=== PATIENT | female | born 1960 | race Caucasian/White ===

== ENCOUNTER → 2020-12-27 08:02 | Outpatient (CLI) | payer OTHER, SELFPAY ==
[2020-12-27 08:21] LABS: Blood Urea Nitrogen 19 mg/dl (7-17); Estimated Glomerular Filt Rate 73 ml/min (>60); GFR (African American) 88 ML/MIN (>60)
--- NOTE | 2020-12-27 08:26 | MR_ITS ---
PROCEDURE: MR HEAD/BRAIN WO/W CON CLINICAL INDICATION: seizure CV DISEASE, ?MS COMPARISON: No exams were available for comparison TECHNIQUE: Routine multiplanar multi echo sequences are performed without gadolinium enhancement. FINDINGS: No midline shift, mass effect, intracranial hemorrhage, or hydrocephalus. No evidence of acute infarction. Unremarkable white matter signal intensity. The hippocampal gyri and temporal horns are unremarkable. There is a partial empty sella as a normal variant. Optic chiasm, corpus callosum, and craniocervical junction have an unremarkable appearance. There is degenerative disc disease with bulging disc at C3-C4 C4-C5 and C5-C6. No evidence to suggest multiple sclerosis. There is increased heterogeneous signal intensity within the petrous apex on the left on T1 and the T2 weighted images with slight increased signal in this area on the FLAIR images. This may represent asymmetric fatty bone marrow within the petrous apex and can be confirmed with CT. No sinus air-fluid level within the paranasal sinuses. IMPRESSION: 1. No evidence of multiple sclerosis. 2. No acute intracranial findings. 3. Increased T1 and T2 signal within the petrous apex on the left which may represent asymmetric fatty marrow within the petrous apex. Consider high-resolution CT of the temporal bones without and with contrast for confirmation Dictated by: Andrew Muhammad MD 12/29/2020 07:56 Andrew Muhammad MD in [place] 12/29/2020 07:56
== END ==
PROVIDERS: PCP Family Medicine; Visit Provider Specialist
DX: G40.909 Epilepsy, unspecified, not intractable, without status epilepticus (principal); R93.0 Abnormal findings on diagnostic imaging of skull and head, not elsewhere classified
CPT/HCPCS: 70553; 82565; 84520; A9576

== ENCOUNTER → 2021-01-10 12:12 | Outpatient (CLI) | payer OTHER, SELFPAY ==
[2021-01-10 13:45] LABS: Chloride 98 mmol/L (98-107); Potassium 4.8 mmoL/L (3.5-5.1); Sodium 130 mmol/L (136-145)
[2021-01-10 13:48] LABS: Anion Gap 9.8 mEq/L (5-15); Blood Urea Nitrogen 18 mg/dl (7-17); Calcium 9.9 mg/dl (8.4-10.2); Carbon Dioxide 27 mmol/L (22.0-30.0); Estimated Glomerular Filt Rate 73 ml/min (>60); GFR (African American) 88 ML/MIN (>60); Glucose 77 mg/dl (74-100)
== END ==
PROVIDERS: Visit Provider Specialist
DX: R93.0 Abnormal findings on diagnostic imaging of skull and head, not elsewhere classified (principal)
CPT/HCPCS: 36415; 80048

== ENCOUNTER → 2021-01-10 12:30 | Outpatient (CLI) | payer OTHER, SELFPAY ==
--- NOTE | 2021-01-10 12:30 | CT_ITS ---
PROCEDURE: CT HEAD/BRAIN WO/W CON CLINICAL INDICATION: special attention to temporal bone, abnormal MRI Abnormal appearing petrous apex on the left. COMPARISON: MR MR HEAD/BRAIN WO/W CON from 12/27/2020 TECHNIQUE: IV Contrast: 100ML Isovue 370 Axial images obtained. All CT scans at the facility use one or more dose reduction, viz: automated exposure control, ma/kV adjustment per patient size (including targeted exams where dose is matched to indication, i.e. head), or iterative reconstruction technique. FINDINGS: High-resolution images are obtained of the temporal bone without and with contrast enhancement. There is extensive pneumatization of the petrous bone on both sides. Along the medial aspect of the left petrous bone instead of air density there is some opacification of the petrous bone air cells accounting for the abnormal signal on the MRI. No bony destructive lesion is evident. The a acoustic foramen is symmetric with no abnormal enhancement. The petrous bone and mastoid air cells are otherwise unremarkable. No midline shift or mass effect. No other significant anomalies are evident. IMPRESSION: Extensive pneumatization of the petrous bone on both sides. Along the medial aspect of the left petrous bone there is opacification of the petrous air cells which may be due to fluid and/or fat and has a benign appearance. Dictated by: Andrew Muhammad MD 01/10/2021 23:48 Andrew Muhammad MD in [facility] 01/10/2021 23:48
== END ==
PROVIDERS: PCP Family Medicine; Visit Provider Specialist
DX: R93.0 Abnormal findings on diagnostic imaging of skull and head, not elsewhere classified (principal)
CPT/HCPCS: 70470; Q9967

== ENCOUNTER → 2022-08-21 09:05 | Outpatient (CLI) | payer OTHER, SELFPAY | PROVIDERS: PCP Family Medicine; Visit Provider Nurse Practitioner | DX: R00.2 Palpitations (principal) | CPT/HCPCS: 93225; 93226 ==

== ENCOUNTER → 2023-05-28 08:40 | Outpatient (CLI) | payer OTHER, SELFPAY | PROVIDERS: Visit Provider Family Medicine | DX: F41.9 Anxiety disorder, unspecified (principal) | CPT/HCPCS: 87086 ==

== ENCOUNTER 2024-01-14 10:42 | Outpatient (CLI) | payer MEDICARE, SELFPAY | END 2024-01-14 23:59 | PROVIDERS: PCP Nurse Practitioner Family; Visit Provider Nurse Practitioner Family | DX: R55 Syncope and collapse (principal) | CPT/HCPCS: 93225 ==

== ENCOUNTER 2024-02-19 15:01 | Emergency (ER) | payer MEDICARE, SELFPAY ==
[2024-02-19 15:02] VITALS: BP 135/61; PULSE 80; RESP 17; TEMP 36.8; O2SAT 96
[2024-02-19 15:03] VITALS: BMI 33.3
--- NOTE | 2024-02-19 15:05 | PC.NURSE ---
Dr. Tovar at bedside
--- NOTE | 2024-02-19 15:05 | ECG_ITS ---
APPROVED REPORT Exam: Resting ECG HR:77 bpm ECG Measurements Heart Rate 77 AXES CA 149 P 50 QRSd 110 QRS 47 QT 385 T 66 QTc 417 Conclusion SINUS RHYTHM INCOMPLETE RIGHT BUNDLE BRANCH BLOCK [90+ ms QRS DURATION, TERMINAL R IN V1/V2, 40+ ms S IN I/aVL/V4/V5/V6] MINIMAL ST DEPRESSION [0.025+ mV ST DEPRESSION] BORDERLINE ECG Electronically signed by : MAXX PRATHER, 03/02/2024 15:29:49
--- NOTE | 2024-02-19 15:12 | PC.NURSE ---
@ [phone] notified radiology that pt will be stroke protocols ct's. Preparing pt for ct.
--- NOTE | 2024-02-19 15:14 | PC.NURSE ---
@ [phone] notified radiology that pt will be stroke protocols ct's. Preparing pt for ct.
--- NOTE | 2024-02-19 15:15 | CT_ITS ---
PROCEDURE INFORMATION: Exam: CTA Neck With Contrast Exam date and time: 02/19/2024 3:22 PM Age: 63 years old Clinical indication: Weakness; Additional info: Transient R weakness and paraesthesia TECHNIQUE: Imaging protocol: Computed tomographic angiography of the neck with contrast. Exam focused on the cervical segments of the vasculature. 3D rendering (Not supervised by radiologist): MIP and/or 3D reconstructed images were created by the technologist. Radiation optimization: All CT scans at this facility use at least one of these dose optimization techniques: automated exposure control; mA and/or kV adjustment per patient size (includes targeted exams where dose is matched to clinical indication); or iterative reconstruction. Contrast material: ISOVUE; Contrast volume: 100 ml; Contrast route: INTRAVENOUS (IV); COMPARISON: CT ANGIO HEAD 02/19/2024 3:22 PM FINDINGS: Right common carotid artery: No stenosis. No dissection or occlusion. Right internal carotid artery: Less than 50% stenosis proximal right ICA. Atherosclerotic calcification. Right external carotid artery: No occlusion or stenosis of the origin. Left common carotid artery: No stenosis. No dissection or occlusion. Left internal carotid artery: Less than 50% stenosis proximal left ICA. Left external carotid artery: No occlusion or stenosis of the origin. Right vertebral artery: No stenosis. No dissection or occlusion. Left vertebral artery: No stenosis. No dissection or occlusion. Soft tissues: Normal. No significant soft tissue swelling. Bones/joints: No acute fracture. IMPRESSION: 1. Less than 50% stenosis proximal right ICA. 2. Less than 50% stenosis proximal left ICA. REFERENCES: NASCET CRITERIA. The degree of stenosis in the cervical segment of the internal carotid artery is based on NASCET criteria. Normal is no stenosis. Mild is less than 50% stenosis. Moderate is 50-69% stenosis. Severe is 70% to 99% stenosis. Total occlusion is no detectable patent lumen.
--- NOTE | 2024-02-19 15:15 | CT_ITS ---
PROCEDURE INFORMATION: Exam: CTA Head With Contrast, Arteriography Exam date and time: 02/19/2024 3:22 PM Age: 63 years old Clinical indication: Weakness; Additional info: Transient R weakness and paraesthesia TECHNIQUE: Imaging protocol: Computed tomographic angiography of the head with contrast. Exam focused on the arteries. 3D rendering (Not supervised by radiologist): MIP and/or 3D reconstructed images were created by the technologist. Radiation optimization: All CT scans at this facility use at least one of these dose optimization techniques: automated exposure control; mA and/or kV adjustment per patient size (includes targeted exams where dose is matched to clinical indication); or iterative reconstruction. Contrast material: ISOVUE; Contrast volume: 100 ml; Contrast route: INTRAVENOUS (IV); COMPARISON: CT HEAD/BRAIN WO CON 02/19/2024 3:20 PM FINDINGS: ANTERIOR CIRCULATION: Right internal carotid artery: Intracranial segment is patent with no significant stenosis. No aneurysm. Right middle cerebral artery: No occlusion or significant stenosis. No aneurysm. Right anterior cerebral artery: No occlusion or significant stenosis. No aneurysm. Left internal carotid artery: Intracranial segment is patent with no significant stenosis. No aneurysm. Left middle cerebral artery: No occlusion or significant stenosis. No aneurysm. Left anterior cerebral artery: No occlusion or significant stenosis. No aneurysm. POSTERIOR CIRCULATION: Right vertebral artery: No occlusion or significant stenosis. No aneurysm. Left vertebral artery: No occlusion or significant stenosis. No aneurysm. Basilar artery: No occlusion or significant stenosis. No aneurysm. Right posterior cerebral artery: No occlusion or significant stenosis. No aneurysm. Left posterior cerebral artery: No occlusion or significant stenosis. No aneurysm. Brain: No definite mass, mass effect, or midline shift. Cerebral ventricles: No ventriculomegaly. Bones/joints: Unremarkable. No acute fracture. Soft tissues: Unremarkable. IMPRESSION: No large vessel stenosis or occlusion.
--- NOTE | 2024-02-19 15:15 | CT_ITS ---
PROCEDURE INFORMATION: Exam: CT Head Without Contrast Exam date and time: 02/19/2024 3:20 PM Age: 63 years old Clinical indication: Other: Transient R weakness and paraesthesia; Additional info: Stroke alert. Transient R weakness and paraesthesia TECHNIQUE: Imaging protocol: Computed tomography of the head without contrast. Radiation optimization: All CT scans at this facility use at least one of these dose optimization techniques: automated exposure control; mA and/or kV adjustment per patient size (includes targeted exams where dose is matched to clinical indication); or iterative reconstruction. COMPARISON: CT HEAD/BRAIN WO/W CON 01/10/2021 2:05 PM FINDINGS: Brain: Normal. No hemorrhage. Unremarkable white matter. No mass effect. Cerebral ventricles: No ventriculomegaly. Paranasal sinuses: Visualized sinuses are unremarkable. No fluid levels. Mastoid air cells: Visualized mastoid air cells are well aerated. Bones/joints: Unremarkable. No acute fracture. Soft tissues: Unremarkable. IMPRESSION: No acute intracranial abnormality.
--- NOTE | 2024-02-19 15:17 | PC.NURSE ---
pt to ct with radiology
--- NOTE | 2024-02-19 15:18 | ED_ITS ---
Discharge Plan Disposition Patient Disposition: Xfer Short-Term Hosp Chief Complaint: Weakness Prescriptions Prescriptions: No Action celecoxib 200 mg capsule 200 mg PO DAILY lamotrigine 100 mg tablet 25 mg PO DAILY Rx Instructions: Takes 4 in the morning, 4 at bedtime. simvastatin 20 mg tablet 40 mg PO HS fluoxetine 40 mg capsule See Rx Instructions .ROUTE .COMPLEX Qty: 30 2RF Dose Instruction: TAKE 1 CAPSULE BY MOUTH DAILY FOR ANXIETY Rx Instructions: TAKE 1 CAPSULE BY MOUTH DAILY FOR ANXIETY benazepril 40 mg tablet See Rx Instructions .ROUTE .COMPLEX Qty: 30 3RF Dose Instruction: TAKE 1 TABLET BY MOUTH DAILY Rx Instructions: TAKE 1 TABLET BY MOUTH DAILY donepezil 5 mg tablet See Rx Instructions .ROUTE .COMPLEX Qty: 30 2RF Dose Instruction: Take 1 Tablet by mouth once daily. Rx Instructions: Take 1 Tablet by mouth once daily. hydrochlorothiazide 12.5 mg tablet See Rx Instructions .ROUTE .COMPLEX Qty: 30 1RF Dose Instruction: Take 1 Tablet by mouth once daily. Rx Instructions: Take 1 Tablet by mouth once daily. Referrals Follow up/Referrals: Steven Clarke MD [Primary Care Provider] - See instructions Clinical Impressions Clinical Impression: TIA (transient ischemic attack) Discharge ED Provider: Manuel Tovar General Adult HPI General Chief complaint: Weakness Stated complaint: Poss CVA 45 min ago (1415), no symp now Time Seen by Provider: 02/19/24 15:01 History of Present Illness HPI narrative: Patient is a 63-year-old female with past medical history of seizure disorder diagnosed in 2019 which was described as like she is put on pause and is aware of her surroundings but unable to respond. At that time she was put on Keppra 500 mg twice daily with significant reduction in frequency. Per Dr. Noland's note she was seen in 2020 for frequency was noted to be approximately once a week. Patient has past medical history of hypertension, MRI and 2019 showed mild hyper intense T2 signal within the left hippocampus with mild cortical expansion, no enhancement. Patient also has episodic paresthesias from her left shoulder down to her elbow that does not extend past the elbow without associated weakness or lower extremity symptoms. Today approximately 45 minutes prior to arrival patient had an episode of right-sided paresthesias involving the arms and legs in a global distribution with associated weakness of the right arm or right leg. No facial droop reported. Patient was able to speak during this. Symptoms lasted approximately 5 minutes and they present here for continued evaluation. Related Data Home Medications Medication Instructions Recorded Confirmed simvastatin 20 mg tablet 40 mg PO HS 03/19/23 02/19/24 celecoxib 200 mg capsule 200 mg PO DAILY 05/28/23 02/19/24 lamotrigine 100 mg tablet 25 mg PO DAILY 05/28/23 02/19/24 Previous Rx's Medication Instructions Recorded fluoxetine 40 mg capsule See Rx Instructions .Route 09/03/23 .COMPLEX #30 caps benazepril 40 mg tablet See Rx Instructions .Route 11/23/23 .COMPLEX #30 tabs donepezil 5 mg tablet See Rx Instructions .Route 01/04/24 .COMPLEX #30 tabs hydrochlorothiazide 12.5 mg tablet See Rx Instructions .Route 01/24/24 .COMPLEX #30 tabs Allergies Allergy/AdvReac Type Severity Reaction Status Date / Time No Known Allergies Allergy Verified 01/14/24 08:50 [facility] Disclaimer: The information contained in this section may have been updated after the patient was seen, as this information can be updated by other users. Medical History (Updated 02/19/24 @ 16:20 by Manuel Tovar MD) Transient neurological symptoms Palpitations Hypertension Memory loss Confusion Social History Smoking Status: Current every day smoker tobacco type: cigarettes packs per day: 1 alcohol intake: never substance use type: denies use current occupational status: employed Travel in the last 8 weeks: None household members: none housing: house ROS Obtained: Yes Systems reviewed as appropriate & no additional complaints except as documented Physical Exam General General appearance: alert and in no apparent distress Head Head exam: atraumatic and normocephalic Eye Eye exam: Present PERRL and EOMI ENT ENT exam: Present mucous membranes moist Neck Neck exam: Present normal inspection Chest Chest inspection: Present normal inspection and symmetric chest wall rise Respiratory Respiratory exam: Present normal lung sounds bilaterally; Absent respiratory distress Cardiovascular Cardiovascular exam: Present regular rate and normal rhythm Abdominal Exam Abdominal exam: Present soft; Absent tenderness Extremities Exam Extremities exam: Present normal inspection Neurological Exam Neurological exam: Present alert, oriented X3 and CN II-XII intact; Absent motor sensory deficit Psychiatric Psychiatric exam: Present normal affect Skin Skin exam: Present warm and dry Medical Decision Making [place] Inquiry Pt receiving controlled substance: No Vital Signs: 02/19/24 15:02 02/19/24 15:31 02/19/24 16:05 Temperature 98.3 F Temperature Source Oral Pulse Rate 80 80 Pulse Rate [Right] 80 Respiratory Rate 17 18 18 Blood Pressure 131/58 L 139/53 L Blood Pressure [Right Arm] 135/61 Blood Pressure Mean 110 105 Blood Pressure Mean [Right Arm] 85 Blood Pressure Source [Right Arm] Automatic Cuff Blood Pressure Position [Right Arm] Sitting 02 Sat by Pulse Oximetry 96 95 97 Oxygen Delivery Method Room Air Lab Data Lab Results 02/19/24 15:10: WBC 9.8, RBC 4.55, Hgb 13.5, Hct 42.7, MCV 93.8, MCH 29.6, MCHC 31.6 L, RDW 14.4, Plt Count 299, MPV 7.5, Neut % (Auto) 63.5, Lymph % (Auto) 24.4, [place] % (Auto) 5.5, Eos % (Auto) 5.6, Baso % (Auto) 1.0, Neut # (Auto) 6.2, Lymph # (Auto) 2.4, [place] # (Auto) 0.5, Eos # (Auto) 0.6 H, Baso # (Auto) 0.1, Sodium 136, Potassium 3.5, Chloride 104, Carbon Dioxide 30, Anion Gap 5.5, BUN 15, Creatinine 0.70, Estimated Creat Clear 80, Estimated GFR 84, Est GFR ( Amer) 102, Glucose 132 H, Calcium 8.9, Magnesium 1.9, Total Bilirubin 0.2, AST 24, ALT 21, Alkaline Phosphatase 113, Troponin I < 0.01, Total Protein 6.9, Albumin 3.9, Globulin 3.0, Albumin/Globulin Ratio 1.3 02/19/24 15:10 02/19/24 15:10 Orders (Tests/Meds): ED MEDICATIONS Discontinued Medications Generic Name Dose Route Start Last Admin Trade Name Freq PRN Reason Stop Dose Admin Iopamidol 100 ml 02/19/24 15:22 02/19/24 15:23 Iopamidol-370 (76%);100ml Bottle IV 02/19/24 15:23 100 ml ONCE ONE Administration Sodium Chloride 50 ml 02/19/24 15:22 02/19/24 15:23 0.9 % Sodium Chloride 50 Ml Vial IV 02/19/24 15:23 50 ml ONCE ONE Administration Sodium Chloride 10 ml 02/19/24 15:22 02/19/24 15:23 Sodium Chloride 0.9% 10ml Syr (Rad Only) IV 02/19/24 15:23 10 ml ONCE ONE Administration ORDERS Category Date Time Status CT angio head Stat Cat Scan 02/19/24 15:[address] angio neck Stat Cat Scan 02/19/24 15:[address] head/brain wo con Stat Cat Scan 02/19/24 15:15 Completed CMP [Comprehensive Metabolic Panel] Stat Lab 02/19/24 15:10 Completed Complete Blood Count Auto Diff Stat Lab 02/19/24 15:10 Completed MG [Magnesium] Stat Lab 02/19/24 15:10 Completed Trop I [Troponin I] Stat Lab 02/19/24 15:10 Completed Troponin I Q3H Lab 02/19/24 18:15 Ordered Troponin I Q3H Lab 02/19/24 21:15 Ordered Urinalysis and Microscopic Stat Lab 02/19/24 16:01 Received ECG Data Tracing #1: Independently interpreted by me, rate of 77, rhythm is regular, axis is normal, no ST elevation in anatomical contiguous leads, QTc 417. Medical Decision Narrative: In summary patient is a 63-year-old female past medical history described above who presents emergency department for evaluation of transient paresthesias and weakness of the right side of her body. Patient is hemodynamically stable nontoxic-appearing upon arrival, afebrile with a nonfocal neurologic exam. Differential diagnosis includes TIA, underlying worsening hyperintense pathology that is known from previous MRI, among others. Patient has cardiovascular risk factors with hypertension and smoking. Last known normal approximately 2:30 PM. Patient undergo stroke protocol with noncontrasted CT scan of the head and CTA of the head and neck. Hematologic labs to be obtained. NIH upon my assessment is 0. Initial workup reviewed by me, hematologic labs are nonactionable, initial troponin below detectable limit. Noncontrasted CT scan of the head informally interpreted by me, no large intra-axial hemorrhage with midline shift. Formal read shows no acute intracranial abnormality, CT of the head and neck shows no large vessel stenosis or occlusion. Less than 50% stenosis of the bilateral ICAs. Case was discussed with [facility] stroke health care legal assistant. Patient is not a tPA candidate given NIH of 0. They graciously accepted patient for transfer under the care of Dr. Campuzano for inpatient management at this time. Critical Care Critical Care Time Critical Care Time: Yes Attestation: On 02/19/24, the high probability of a clinically significant, sudden or life threatening deterioration of the following system(s) required my full and direct attention, intervention and personal management. The time I documented below is in addition to time spent performing reported procedures but includes the following listed in this critical care notation. Total Time Total Critical Care Time: 35
[2024-02-19 15:21] LABS: Basophils # 0.1 K/mm3 (0-0.2); Eosinophils # 0.6 K/mm3 (0.0-0.4); Eosinophils % 5.6 % (0.1-12.0); Hematocrit 42.7 % (37.0-47.0); Hemoglobin 13.5 g/dL (12.2-16.2); Lymphocytes # 2.4 K/mm3 (0.7-4.5); Lymphocytes % 24.4 % (10-50); Mean Corpuscular HGB Conc 31.6 g/dL (31.8-35.4); Mean Corpuscular Hemoglobin 29.6 pg (27.0-31.2); Mean Corpuscular Volume 93.8 fl (81-99); Mean Platelet Volume 7.5 fl (7.4-10.4); Monocytes # 0.5 K/mm3 (0.1-1.0); Monocytes % 5.5 % (1.7-9.3); Neutrophils # 6.2 K/mm3 (1.8-7.8); Neutrophils % 63.5 % (37.0-80.0); Platelet Count 299 K/mm3 (142-424); Red Blood Count 4.55 M/mm3 (4.20-5.40); Red Cell Distribution Width 14.4 % (11.5-17.5); White Blood Count 9.8 K/mm3 (4.8-10.8)
[2024-02-19] MEDS: IOPAMIDOL-370 (76%);100ML BOTTLE 100 ML IV (15:23)
[2024-02-19] MEDS: 0.9 % SODIUM CHLORIDE 50 ML VIAL IV (15:23)
[2024-02-19] MEDS: SODIUM CHLORIDE 0.9% 10ML SYR (RAD ONLY) 10 ML IV (15:23)
[2024-02-19 15:25] LABS: Chloride 104 mmol/L (98-107); Potassium 3.5 mmoL/L (3.5-5.1); Sodium 136 mmol/L (136-145)
[2024-02-19 15:27] LABS: Alanine Aminotransferase 21 U/L (12-78); Alkaline Phosphatase 113 U/L (38-126); Aspartate Amino Transferase 24 U/L (14-36); Bilirubin,Total 0.2 mg/dl (0.2-1.3); Blood Urea Nitrogen 15 mg/dl (7-17); Creatinine Clearance Estimated 80 mL/min (50-200); Estimated Glomerular Filt Rate 84 ml/min (>60); GFR (African American) 102 ML/MIN (>60)
[2024-02-19 15:28] LABS: Albumin Level 3.9 g/dl (3.5-5.0); Albumin/Globulin Ratio 1.3 (1.1-1.8); Anion Gap 5.5 mEq/L (5-15); Calcium 8.9 mg/dl (8.4-10.2); Carbon Dioxide 30 mmol/L (22.0-30.0); Glucose 132 mg/dl (74-100); Magnesium 1.9 mg/dl (1.6-2.3); Total Protein,Serum 6.9 g/dl (6.3-8.2)
[2024-02-19 15:31] VITALS: BP 131/58; PULSE 80; RESP 18; O2SAT 95
[2024-02-19 15:44] LABS: Troponin I < 0.01 ng/ml (0.00-0.034)
--- NOTE | 2024-02-19 15:48 | PC.NURSE ---
Dr. Tovar at BS to update pt/visitors on POC
[2024-02-19 16:05] VITALS: BP 139/53; PULSE 80; RESP 18; O2SAT 97
[2024-02-19 16:05] LABS: Microscopic, Urine URINE MICROSCOPIC (MICROSCOPIC)
[2024-02-19 16:08] LABS: Appearance,Urine CLEAR (Clear); Bilirubin,Urine Negative (Negative); Blood, Urine Negative (Negative); Color,Urine YELLOW (Yellow); Glucose,Urine (UA) Negative (Negative); Ketones,Urine Negative (Negative); Leukocyte Esterase,Urine Negative (Negative); Nitrate,Urine Negative (Negative); PH,Urine 5.5 (5.0-8.5); Protein,Urine Negative (Negative); Specific Gravity, Urine <= 1.005 (1.005-1.030); Urobilinogen,Urine 0.2 EU/dl (0.2)
--- NOTE | 2024-02-19 16:20 | PC.NURSE ---
Dr. Tovar states he s/w [facility] Stroke Navigator and Dr. Campuzano accepted pt.
[2024-02-19 16:23] LABS: Bacteria,Urine 1+ /lpf; RBC,Urine Occasional #/hpf (0-3)
[2024-02-19 16:30] VITALS: BP 133/61; PULSE 68; RESP 16; O2SAT 97
--- NOTE | 2024-02-19 16:31 | PC.NURSE ---
faxed facesheet to [place] [phone]
--- NOTE | 2024-02-19 16:47 | PC.NURSE ---
Report called to Pat RAJAN at [facility]
--- NOTE | 2024-02-19 16:47 | PC.NURSE ---
RN calling report at this time
[2024-02-19 17:07] VITALS: BP 137/66; PULSE 72; RESP 16; TEMP 36.8; O2SAT 97
== END 2024-02-19 17:08 | disposition short-term general hospital (02) ==
PROVIDERS: Emergency Provider Emergency Medicine; PCP Family Medicine
DX: G45.9 Transient cerebral ischemic attack, unspecified (principal); F17.210 Nicotine dependence, cigarettes, uncomplicated; I10 Essential (primary) hypertension
CPT/HCPCS: 70450; 70496; 70498; 80053; 81001; 83735; 84484; 85025; 93005; 99285; Q9967

== ENCOUNTER 2024-10-06 15:00 | Outpatient (CLI) | payer MEDICARE, SELFPAY | END 2024-10-06 23:59 | disposition home or self-care (01) | LOC: LAB.DROPOF 10-07 09:45 | PROVIDERS: PCP Family Medicine; Visit Provider Nurse Practitioner Family | DX: N39.0 Urinary tract infection, site not specified (principal) | CPT/HCPCS: 87086; 87088; 87186 ==

== ENCOUNTER 2024-10-20 09:26 | Outpatient (CLI) | payer MEDICARE, SELFPAY ==
[2024-10-20 18:39] LABS: Basophils % 0.4 % (0.1-2.0); Eosinophils # 0.4 K/mm3 (0.0-0.4); Eosinophils % 4.3 % (0.1-12.0); Hematocrit 41.9 % (37.0-47.0); Hemoglobin 14.3 g/dL (12.2-16.2); Lymphocytes # 1.4 K/mm3 (0.7-4.5); Lymphocytes % 14.2 % (10-50); Mean Corpuscular HGB Conc 34.1 g/dL (31.8-35.4); Mean Corpuscular Hemoglobin 29.9 pg (27.0-31.2); Mean Corpuscular Volume 87.7 fl (81-99); Mean Platelet Volume 7.8 fl (7.4-10.4); Monocytes # 0.6 K/mm3 (0.1-1.0); Monocytes % 5.7 % (1.7-9.3); Neutrophils # 7.7 K/mm3 (1.8-7.8); Neutrophils % 75.4 % (37.0-80.0); Platelet Count 324 K/mm3 (142-424); Red Blood Count 4.78 M/mm3 (4.20-5.40); Red Cell Distribution Width 13.9 % (11.5-17.5); White Blood Count 10.2 K/mm3 (4.8-10.8)
[2024-10-20 18:59] LABS: Alanine Aminotransferase 15 U/L (12-78); Albumin Level 3.9 g/dl (3.5-5.0); Albumin/Globulin Ratio 1.6 (1.1-1.8); Alkaline Phosphatase 95 U/L (38-126); Aspartate Amino Transferase 20 U/L (14-36); Bilirubin,Total 0.5 mg/dl (0.2-1.3); Blood Urea Nitrogen 12 mg/dl (7-17); Calcium 8.8 mg/dl (8.4-10.2); Carbon Dioxide 24 mmol/L (22.0-30.0); Chloride 103 mmol/L (98-107); Chol/HDL Ratio 2.5 (1-3.5); Cholesterol 118 mg/dl (140-200); Estimated Glomerular Filt Rate 84 ml/min (>60); GFR (African American) 101 ML/MIN (>60); Globulin 2.5 g/dL (1.3-3.2); Glucose 104 mg/dl (74-100); HDL Cholesterol 47 mg/dl (40-60); Sodium 134 mmol/L (136-145); Total Protein,Serum 6.4 g/dl (6.3-8.2); Triglycerides 137 mg/dl (30-150); VLDL Cholesterol 27 mg/dL (0-40)
[2024-10-20 19:17] LABS: 25-OH Vitamin D, Total 33.6 ng/mL (30-100)
[2024-10-20 19:28] LABS: Thyroid Stimulating Hormone 1.27 uIU/mL (0.465-4.68)
[2024-10-20 19:40] LABS: Iron 50 ug/dL (37-170)
[2024-10-20 19:50] LABS: Total Iron Binding Capacity 340 ug/dL (265-497)
[2024-10-20 19:51] LABS: Direct LDL Cholesterol 56.86 mg/dL (100-129)
[2024-10-20 20:04] LABS: Vitamin B12 384 pg/mL (239-931)
[2024-10-20 20:09] LABS: Folate 9.14 ng/mL
[2024-10-20 20:24] LABS: Ferritin 31.2 ng/ml (11.1-264)
== END 2024-10-20 23:59 | disposition home or self-care (01) ==
LOC: LAB.DROPOF 10-23 09:26
PROVIDERS: PCP Nurse Practitioner Family; Visit Provider Nurse Practitioner Family
DX: E66.01 Morbid (severe) obesity due to excess calories (principal); Z68.37 Body mass index [BMI] 37.0-37.9, adult; R53.83 Other fatigue; E61.1 Iron deficiency; E53.8 Deficiency of other specified B group vitamins; I10 Essential (primary) hypertension; E55.9 Vitamin D deficiency, unspecified; R41.3 Other amnesia; R41.0 Disorientation, unspecified; L29.9 Pruritus, unspecified
CPT/HCPCS: 80053; 80061; 82306; 82607; 82728; 82746; 83540; 83550; 84443; 85025